=== PATIENT | female | born 1955 | race Caucasian/White ===

== ENCOUNTER 2019-01-24 11:04 | Emergency (ER) | payer MEDICARE, OTHER ==
--- NOTE | 2019-01-24 11:54 | EDM.PDOC ---
ED HPI GENERAL MEDICAL PROBLEM - General Chief Complaint: Syncope Stated Complaint: SEIZURE Time Seen by Provider: 01/24/19 11:30 Source of Information: Reports: Patient, EMS, Family History Limitations: Reports: No Limitations - History of Present Illness INITIAL COMMENTS - FREE TEXT/NARRATIVE: 64-year-old female with early-onset dementia was shopping on the street when she had a syncopal episode. She didn't feel well just prior to fainting but doesn't remember any specifics. No palpitations, hasn't been ill, hasn't had fever or chills, nausea or vomiting or abdominal pain. She has a little bit of abrasion on her left knee but otherwise no injury and now feels fine. Glucose was checked in route and was normal. Onset: Sudden Improves with: Reports: None Worsens with: Reports: None Associated Symptoms: Reports: Confusion (Some confusion after "coming around") knee Pain Score (Numeric/FACES): 4 - Related Data Allergies Allergy/AdvReac Type Severity Reaction Status Date / Time No Known Allergies Allergy Verified 01/24/19 11:13 Home Meds: Home Meds Donepezil HCl [Aricept] 10 mg PO DAILY 01/24/19 [History] Irbesartan [Avapro] 150 mg PO DAILY 01/24/19 [History] Levothyroxine 150 mcg PO DAILY 01/24/19 [History] Rosuvastatin [Crestor] 5 mg PO BEDTIME 01/24/19 [History] Past Medical History Cardiovascular History: Reports: High Cholesterol, Hypertension 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: Neurological History: Reports: Alzheimers Disease Endocrine/Metabolic History: Reports: Hypothyroidism Social & Family History - Tobacco Use Smoking Status *Q: Never Smoker - Caffeine Use Caffeine Use: Reports: Coffee - Recreational Drug Use Recreational Drug Use: No ED ROS GENERAL - Review of Systems Review Of Systems: See Below Constitutional: Denies: Fever, Chills HEENT: Reports: No Symptoms Respiratory: Denies: Shortness of Breath Cardiovascular: Denies: Chest Pain GI/Abdominal: Denies: Abdominal Pain, Nausea, Vomiting : Reports: No Symptoms Skin: Reports: Other (Slight abrasion on the anterior aspect of the left knee) Neurological: Reports: Other (Has worsening early-onset dementia) - Physical Exam Exam: See Below Exam Limited By: No Limitations General Appearance: Alert, No Apparent Distress Eye Exam: Bilateral Eye: Normal Inspection Head Exam: Atraumatic Neck: Normal Inspection Respiratory/Chest: No Respiratory Distress, Lungs Clear Cardiovascular: Regular Rate, Rhythm. No: Extra Beats Neuro Exam (Abbreviated): Alert, Oriented, No Motor/Sensory Deficits Extremities: Other (Slight erythema and abrasion to the anterior left knee over the patella but no bony tenderness, effusion or pain with movement) Psychiatric: Normal Affect, Normal Mood Course - Vital Signs Last Recorded V/S: Last Vital Signs Temp 97.7 F 01/24/19 11:09 Pulse 88 01/24/19 11:09 Resp 16 01/24/19 11:09 BP 158/81 H 01/24/19 11:09 Pulse Ox 100 01/24/19 11:09 - Orders/Labs/Meds Labs: Laboratory Tests 01/24/19 01/24/19 Range/Units 11:56 11:56 WBC 4.9 (4.5-11.0) K/uL RBC 4.48 (3.30-5.50) M/uL Hgb 14.0 (12.0-15.0) g/dL Hct 41.5 (36.0-48.0) % MCV 93 (80-98) fL MCH 31 (27-31) pg MCHC 34 (32-36) % Plt Count 232 (150-400) K/uL Neut % (Auto) 68 H (36-66) % Lymph % (Auto) 21 L (24-44) % [place] % (Auto) 10 H (2-6) % Eos % (Auto) 1 L (2-4) % Baso % (Auto) 0 (0-1) % Sodium 145 (140-148) mmol/L Potassium 4.0 (3.6-5.2) mmol/L Chloride 106 (100-108) mmol/L Carbon Dioxide 28 (21-32) mmol/L Anion Gap 10.7 (5.0-14.0) mmol/L BUN 11 (7-18) mg/dL Creatinine 0.6 (0.6-1.0) mg/dL Est Cr Clr Drug Dosing 84.11 mL/min Estimated GFR (MDRD) > 60 (>60) Glucose 105 (74-106) mg/dL Calcium 9.5 (8.5-10.1) mg/dL - Re-Assessments/Exams Free Text/Narrative Re-Assessment/Exam: 01/24/19 11:54 CBC and BMP were obtained, heart monitor while waiting for lab results. 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 She did not redevelops symptoms so was discharged in good condition with a diagnosis of vasovagal syncope. Departure - Departure Time of Disposition: 13:44 Disposition: Home, Self-Care 01 Condition: Good Clinical Impression: Syncope, vasovagal Abrasion of left knee Qualifiers: Encounter type: initial encounter Qualified Code(s): S80.212A - Abrasion, left knee, initial encounter - Discharge Information Instructions: Syncope, [id number] Referrals: PCP,None [Primary Care Provider] - Forms: ED Department Discharge Care Plan Goals: Continue your current medications, stay hydrated, and increase activity as tolerated. Return anytime if you start feeling poorly or redevelop symptoms.
== END 2019-01-24 13:44 | disposition home or self-care (01) ==
LOC: JP.ED 11:04
DX: R55 Syncope and collapse (principal); S80.212A Abrasion, left knee, initial encounter; I10 Essential (primary) hypertension; G30.9 Alzheimer's disease, unspecified; E03.9 Hypothyroidism, unspecified; Z79.899 Other long term (current) drug therapy
CPT/HCPCS: 36415; 80048; 85025; 99283; 99284